=== PATIENT | female | born 1955 | race Caucasian/White ===

== ENCOUNTER → 2017-08-31 | Outpatient (CLI) | payer OTHER ==
[~2017-08-31] MED LIST: ALBUAER INJ; ANSHCCR RE; B-COCAP2 PO; CYM60 PO; FERR325T51 PO; MISCTAB26 PO; TRAZ50TA35 PO; [UNRECOGNIZED DRUG - CODE] PO
--- NOTE | 2017-09-01 15:18 | MAMMOGRAPHY REPORT ---
BILATERAL DIGITAL SCREENING MAMMOGRAM TOMOSYNTHESIS WITH CAD: 08/31/2017 CLINICAL HISTORY: Routine screening. TECHNIQUE: Breast tomosynthesis in addition to standard 2D mammography was performed. Current study was also evaluated with a Computer Aided Detection (CAD) system. COMPARISON: Comparison is made to exams dated: 01/16/2016 mammogram, 01/31/2014 mammogram - [facility], 06/21/2008 mammogram, 12/17/2007 mammogram, 12/15/2006 mammogram, and 05/22/2005 mammogr am - [facility] [place]. BREAST COMPOSITION: There are scattered areas of fibroglandular density in both breasts. FINDINGS: The parenchymal pattern is unchanged. No developing mass, architectural distortion or clus ter of suspicious microcalcifications is seen in either breast. IMPRESSION: ACR BI-RADS CATEGORY 2: BENIGN There is no mammographic evidence of malignancy. A 1 year screening mammogram is recommended. The pa tient will receive written notification of the results. Approximately 10% of breast cancers are not detected with mammography. A negative mammographic report should not delay biopsy if a clinically suggestive mass is present. Moon Mejia M.D. ay/:08/31/2017 15:56:25 Ball Warper Tender: Kimberly MELCHOR(R)([place]), [facility] letter sent: Normal 1/2 BI-RADS Code: ACR BI-RADS Category 2: Benign
== END | disposition home or self-care (01) ==
LOC: C.MAMM 14:39
PROVIDERS: ATTEND Internal Medicine
DX: Z12.31 Encounter for screening mammogram for malignant neoplasm of breast (principal)

== ENCOUNTER 2018-02-01 17:40 | Emergency (ER) | payer OTHER ==
[~2018-02-01] VITALS: Ht 170.2 cm; Wt 86.5 kg
[2018-02-01 17:55] VITALS: TEMP 36.5; Ht 170.2 cm; Wt 86.5 kg
--- NOTE | 2018-02-01 18:47 | DIAGNOSTIC IMAGING REPORT ---
L KNEE 3 VIEWS CLINICAL HISTORY: Left knee pain/swelling COMPARISON: None. DISCUSSION: No acute fractures or dislocations are visualized. There is a suprapatellar joint effusion. There is a 5 mm loose body projected over the lateral joint compartment. The medial lateral joint spaces appear well-preserved on these nonweightbearing views IMPRESSION: 1. No acute fractures 2. 5 mm loose body projected over the lateral joint compartment 3. Suprapatellar joint effusion Electronically signed by: Donell Andres M.D. 02/01/2018 6:46 PM Dictated Date/Time: 02/01/2018 6:45 PM
--- NOTE | 2018-02-01 19:28 | DIAGNOSTIC IMAGING REPORT ---
ULTRASOUND L VENOUS DOPP LOWER EXT UNILAT CLINICAL HISTORY: Left leg pain COMPARISON STUDY: No previous studies for comparison. FINDINGS: Real-time and color flow Doppler imaging were performed. Flow was seen within the femoral, popliteal and calf veins with no intraluminal thrombus demonstrated. The saphenous vein is patent. There is 11 x 23 x 10 mm left popliteal fossa cyst. IMPRESSION: No evidence of left lower extremity DVT. Small left popliteal cyst Electronically signed by: Donell Andres M.D. 02/01/2018 7:27 PM Dictated Date/Time: 02/01/2018 7:26 PM
[2018-02-01 20:04] VITALS: BP 136/77; PULSE 84; O2SAT 98
--- NOTE | 2018-02-01 22:22 | EMERGENCY ROOM VISIT NOTE ---
History First contact with patient: 18:04 Chief Complaint: KNEEPAIN Stated Complaint: KNEE PAIN,DIFFICULTY WALKING-L LEG History of Present Illness The patient is a 62 year old female who presents to the Emergency Room with complaints of left knee pain that has been worsening over the past 4 or 5 days. The patient states that she did have a fall about 2 months ago, but had been feeling well after a few days. She does not have a more recent injury that she recalls. The pain is primarily behind the left knee and does not radiate. The pain seems to worsen with walking and certain range of motion. She does not have back pain, numbness, or paresthesias. She does not have a recent travel history or history of DVT/PE. She rates her current discomfort a 5/10. States Review of Systems More than 10 systems were reviewed and otherwise negative with the exception of history of present illness. Past Medical/Surgical History Medical Problems: (1) Hemorrhoids Family History No pertinent family history Social History Smoking Status: Never Smoker Alcohol Use: occasionally Drug Use: none Marital Status: single Occupation Status: employed Current/Historical Medications Scheduled Coenzyme Q10 (Ubidecarenone) (Coq10), 100 MG PO QAM Duloxetine HCl (Duloxetine HCl), 60 MG PO QAM Ferrous Sulfate (Iron Supplement), 1 TAB PO BID Hydrocortisone (Proctosol Hc), 1 APPLN RE PRN Misc Natural Products (Ginkgo Biloba), 1 TAB PO QAM Trazodone Hcl (Trazodone), 75 MG PO HS Vitamin B Cmplx/Vitc/Folic Ac (Nephrocaps), 1 CAP PO QAM Scheduled PRN Albuterol (Proventil Hfa), 2 PUFFS INJ Q4H PRN for Shortness of Breath Physical Exam Vital Signs Date Time Temp Pulse Resp B/P (MAP) Pulse Ox O2 Delivery O2 Flow Rate FiO2 02/01/18 20:04 84 18 136/77 98 02/01/18 17:55 36.5 73 16 128/61 98 Room Air Physical Exam VITALS: Vitals are noted on the nurse's note and reviewed by myself. Vital signs stable. GENERAL: Well-developed, well-nourished, female, who is in no acute distress and resting comfortably. Patient is cooperative with the examination. HEART: Regular rate and rhythm without murmurs gallops or rubs. LUNGS: Clear to auscultation bilaterally without wheezes, rales or rhonchi. No retractions or accessory muscle use. MUSCULOSKELETAL: Tenderness is noted in the popliteal fossa of the left knee. There is some mild edema in this area. No ligamentous laxity to anterior or posterior drawer of the left knee. Normal varus and valgus straining. No palpable cords. Neurovascular status is intact distally. Medical Decision & Procedures ER Provider Diagnostic Interpretation: L KNEE 3 VIEWS CLINICAL HISTORY: Left knee pain/swelling COMPARISON: None. DISCUSSION: No acute fractures or dislocations are visualized. There is a suprapatellar joint effusion. There is a 5 mm loose body projected over the lateral joint compartment. The medial lateral joint spaces appear well-preserved on these nonweightbearing views IMPRESSION: 1. No acute fractures 2. 5 mm loose body projected over the lateral joint compartment 3. Suprapatellar joint effusion ULTRASOUND L VENOUS DOPP LOWER EXT UNILAT CLINICAL HISTORY: Left leg pain COMPARISON STUDY: No previous studies for comparison. FINDINGS: Real-time and color flow Doppler imaging were performed. Flow was seen within the femoral, popliteal and calf veins with no intraluminal thrombus demonstrated. The saphenous vein is patent. There is 11 x 23 x 10 mm left popliteal fossa cyst. IMPRESSION: No evidence of left lower extremity DVT. Small left popliteal cyst ED Course Physical exam and history were performed. Nursing notes, EMR, and Medication List were personally reviewed. Patient appears to have pain in her left knee, primarily in the posterior aspect for the past several days. X-ray was performed and reviewed by myself and radiology as showing no acute fractures or dislocations. Because of the location of symptoms and onset without trauma I elected to perform an ultrasound. Ultrasound is without evidence of DVT, but does reveal a popliteal cyst. Clinically this is felt to be the most likely cause of her symptoms. The patient will be educated on conservative care with [id number] analgesics. She is to follow with her primary care physician or with orthopedics with any ongoing or persisting symptoms. The patient was pleased with this plan and voiced understanding. The chart was completed utilizing [employer] Voice [employer]ognition Software. Grammatical errors, random word insertions, pronoun errors, and incomplete sentences are an occasional consequence of this system due to software limitations, ambient noise, and hardware issues. Any formal questions or concerns about the content, text, or information contained within the body of this dictation should be directly addressed to the provider for clarification. . Medical Decision Differential diagnosis: Etiologies such as DVT, musculoskeletal, infection, joint effusion, trauma, lymphedema, idiopathic, CHF, as well as others were entertained.. Impression Primary Impression: Popliteal cyst Additional Impression: Left knee pain Departure Information Dispostion Home / Self-Care Condition GOOD Forms HOME CARE DOCUMENTATION FORM, IMPORTANT VISIT INFORMATION Patient Instructions My [facility] Additional Instructions You were seen and evaluated today on an emergency basis only. This is not a substitute for, or an effort to provide, complete comprehensive medical care. It is not possible to recognize and treat all injuries or illnesses in a single emergency department visit. For this reason it is recommended that you followup with your primary care physician if symptoms persist over the next 1-2 weeks. For baseline pain relief you may alternate ibuprofen and acetaminophen every 4 hours for pain control. Take 600 mg ibuprofen (Advil) and then 4 hours later take 1000 mg acetaminophen (Tylenol). Do not take more than 3000 mg acetaminophen in a single day. You are welcome to return to the emergency department anytime with new, worsening, or concerning symptoms. Problem Qualifiers
== END 2018-02-01 20:06 | disposition home or self-care (01) ==
LOC: C.EDB 17:42 → C.EDD 20:06
DX: M71.22 Synovial cyst of popliteal space [Baker], left knee (principal); M25.562 Pain in left knee